=== PATIENT | male | born 1965 | race Caucasian/White ===

== ENCOUNTER 2020-11-09 08:14 | Inpatient (IN) | payer OTHER ==
[2020-11-09 08:42] VITALS: BMI 38.9
[2020-11-09] MEDS ORDERED: MAGNESIUM CITRATE 300 ML BOTTLE PO PRN (09:51)
[2020-11-09] MEDS ORDERED: MAGNESIUM HYDROX 2400MG/30ML ORAL SUSPENSION 30 ML CUP PO PRN (09:51)
[2020-11-09] MEDS ORDERED: chlordiazePOXIDE HCL 25 MG CAPSULE PO PRN (09:51)
[2020-11-09] MEDS ORDERED: ACETAMINOPHEN 325 MG TABLET (FP) PO PRN (09:51)
[2020-11-09] MEDS ORDERED: MENTHOL/PHENOL 1 EACH UD MM PRN (09:51)
[2020-11-09] MEDS ORDERED: IBUPROFEN 400 MG TABLET (FP) PO PRN (09:51)
[2020-11-09] MEDS ORDERED: ONDANSETRON *ODT* 4 MG TABLET SL PRN (09:51)
[2020-11-09] MEDS ORDERED: METHOCARBAMOL 500 MG TABLET PO PRN (09:51)
[2020-11-09] MEDS ORDERED: MAG HYDROX/AL HYDROX/SIMETH 30 ML UNIT-DOSE CUP PO PRN (09:51)
[2020-11-09] MEDS ORDERED: ALBUTEROL SO4 HFA INHALER IH PRN (09:56)
[2020-11-09] MEDS ORDERED: INSULIN (NOVOLOG) ASPART 100 UNITS/ML 10ML VIAL ONE ×3 (10:18→22:39)
[2020-11-09] MEDS: INSULIN (NOVOLOG) ASPART 100 UNITS/ML 10ML VIAL SQ SCH ×3 (10:50→22:35)
[2020-11-09] MEDS: chlordiazePOXIDE HCL 25 MG CAPSULE PO SCH ×2 (12:15→18:30)
[2020-11-09] MEDS: FUROSEMIDE 40 MG TABLET (FP) PO SCH (12:15)
[2020-11-09] MEDS: amLODIPine BESYLATE 5 MG TABLET (FP) PO SCH (12:16)
[2020-11-09] MEDS: OXYMETAZOLINE 0.05% NASAL SOLUTION 15 ML BOTTLE NS SCH ×2 (12:16→22:29)
[2020-11-09] MEDS: GABAPENTIN 300 MG CAPSULE PO SCH ×2 (12:16→22:30)
[2020-11-09] MEDS: PRENATAL VITAMINS W/ FOLIC ACID TABLET (FP) PO SCH (12:17)
[2020-11-09] MEDS: PIOGLITAZONE HCL 30 MG TABLET PO SCH (12:19)
[2020-11-09] MEDS: CARVEDILOL 25 MG TABLET (FP) PO SCH ×2 (12:29→22:30)
[2020-11-09] MEDS: EZETIMIBE 10 MG TABLET (FP) PO SCH (12:29)
[2020-11-09] MEDS: hydrOXYzine PAMOATE 25 MG CAPSULE (FP) PO SCH ×4 (12:29→22:35)
[2020-11-09 12:46] LABS: HEMATOCRIT 34.2 % (35.4-49); HEMOGLOBIN 11.7 GM/dL (11.7-16.9); MCH 31.8 pg (25.7-33.7); MCHC 34.3 g/dl (32.0-35.9); MEAN CELL VOLUME 92.7 fl (80-96); MEAN PLT VOLUME 7.8 fl (7.5-11.1); PLATELET COUNT 108 K/MM3 (134-434); RBC 3.69 M/mm3 (4.00-5.60); RDW 13.4 % (11.9-15.9); WHITE BLOOD COUNT 5.3 K/mm3 (4.0-10.0)
[2020-11-09 12:52] LABS: ALBUMIN 3.5 g/dl (3.4-5.0); CALCIUM 8.9 mg/dL (8.5-10.1)
[2020-11-09 12:53] LABS: BLOOD UREA NITROGEN 28.2 mg/dL (7-18)
[2020-11-09 12:56] LABS: CREATININE 1.6 mg/dL (0.55-1.3)
[2020-11-09 12:57] LABS: BILIRUBIN,TOTAL 0.7 mg/dL (0.2-1); TOT PROT 7.3 g/dl (6.4-8.2)
[2020-11-09] MEDS ORDERED: LORazepam 1 MG TABLET PO PRN (17:53)
[2020-11-09] MEDS ORDERED: ATORVASTATIN CA 40 MG TABLET (FP) PO SCH (22:00)
[2020-11-09] MEDS: LORazepam 2 MG TABLET PO SCH (22:29)
[2020-11-09] MEDS: THIAMINE HCL 100 MG TABLET (FP) PO SCH (22:30)
[2020-11-09] MEDS: MELATONIN 5 MG TABLETS PO SCH (22:32)
[2020-11-09] MEDS: INSULIN (LEVEMIR) 100 UNITS/ML UNITS SQ SCH (22:34)
[2020-11-10] MEDS: hydrOXYzine PAMOATE 25 MG CAPSULE (FP) PO SCH (05:17)
[2020-11-10] MEDS: LORazepam 2 MG TABLET PO SCH ×4 (05:17→22:04)
[2020-11-10] MEDS ORDERED: INSULIN (NOVOLOG) ASPART 100 UNITS/ML 10ML VIAL ONE ×4 (07:58→22:18)
[2020-11-10] MEDS: INSULIN (NOVOLOG) ASPART 100 UNITS/ML 10ML VIAL SQ SCH ×4 (08:00→22:06)
[2020-11-10] MEDS: CARVEDILOL 25 MG TABLET (FP) PO SCH ×2 (11:02→22:04)
[2020-11-10] MEDS: OXYMETAZOLINE 0.05% NASAL SOLUTION 15 ML BOTTLE NS SCH ×2 (11:02→22:05)
[2020-11-10] MEDS: PIOGLITAZONE HCL 30 MG TABLET PO SCH (11:02)
[2020-11-10] MEDS: PRENATAL VITAMINS W/ FOLIC ACID TABLET (FP) PO SCH (11:03)
[2020-11-10] MEDS: GABAPENTIN 300 MG CAPSULE PO SCH ×2 (11:03→22:03)
[2020-11-10] MEDS: FUROSEMIDE 40 MG TABLET (FP) PO SCH (11:03)
[2020-11-10] MEDS: EZETIMIBE 10 MG TABLET (FP) PO SCH (11:03)
[2020-11-10] MEDS: amLODIPine BESYLATE 5 MG TABLET (FP) PO SCH (11:03)
[2020-11-10] MEDS: BISMUTH SUBSALICYLATE 524 MG/30 ML PO PRN (12:04)
[2020-11-10] MEDS: ATORVASTATIN CA 40 MG TABLET (FP) PO SCH (22:03)
[2020-11-10] MEDS: THIAMINE HCL 100 MG TABLET (FP) PO SCH (22:04)
[2020-11-10] MEDS: MELATONIN 5 MG TABLETS PO SCH (22:06)
[2020-11-10] MEDS: INSULIN (LEVEMIR) 100 UNITS/ML UNITS SQ SCH (22:06)
[2020-11-11] MEDS ORDERED: LORazepam 1 MG TABLET PO SCH (05:00)
[2020-11-11] MEDS ORDERED: chlordiazePOXIDE HCL 25 MG CAPSULE PO SCH (05:00)
[2020-11-11] MEDS ORDERED: INSULIN (NOVOLOG) ASPART 100 UNITS/ML 10ML VIAL ONE ×4 (07:26→22:01)
[2020-11-11] MEDS: INSULIN (NOVOLOG) ASPART 100 UNITS/ML 10ML VIAL SQ SCH ×4 (07:31→22:04)
[2020-11-11] MEDS ORDERED: chlordiazePOXIDE HCL 10 MG CAPSULE PO PRN (10:04)
[2020-11-11] MEDS: amLODIPine BESYLATE 5 MG TABLET (FP) PO SCH (10:18)
[2020-11-11] MEDS: CARVEDILOL 25 MG TABLET (FP) PO SCH ×2 (10:19→22:02)
[2020-11-11] MEDS: PRENATAL VITAMINS W/ FOLIC ACID TABLET (FP) PO SCH (10:19)
[2020-11-11] MEDS: GABAPENTIN 300 MG CAPSULE PO SCH ×2 (10:19→22:02)
[2020-11-11] MEDS: FUROSEMIDE 40 MG TABLET (FP) PO SCH (10:19)
[2020-11-11] MEDS: EZETIMIBE 10 MG TABLET (FP) PO SCH (10:20)
[2020-11-11] MEDS: OXYMETAZOLINE 0.05% NASAL SOLUTION 15 ML BOTTLE NS SCH ×2 (10:21→22:13)
[2020-11-11] MEDS: PIOGLITAZONE HCL 30 MG TABLET PO SCH (10:21)
[2020-11-11] MEDS: chlordiazePOXIDE HCL 10 MG CAPSULE PO SCH ×3 (11:29→22:06)
[2020-11-11] MEDS: BISMUTH SUBSALICYLATE 524 MG/30 ML PO PRN (15:52)
[2020-11-11] MEDS: LORATADINE 10 MG TABLET PO SCH (17:30)
[2020-11-11] MEDS: ATORVASTATIN CA 40 MG TABLET (FP) PO SCH (22:02)
[2020-11-11] MEDS: MELATONIN 5 MG TABLETS PO SCH (22:03)
[2020-11-11] MEDS: THIAMINE HCL 100 MG TABLET (FP) PO SCH (22:03)
[2020-11-11] MEDS: INSULIN (LEVEMIR) 100 UNITS/ML UNITS SQ SCH (22:04)
[2020-11-12] MEDS ORDERED: chlordiazePOXIDE HCL 10 MG CAPSULE PO PRN
[2020-11-12] MEDS ORDERED: LORazepam 0.5 MG TABLET PO PRN
[2020-11-12] MEDS ORDERED: chlordiazePOXIDE HCL 10 MG CAPSULE PO SCH (05:00)
[2020-11-12] MEDS ORDERED: LORazepam 0.5 MG TABLET PO SCH (05:00)
[2020-11-12] MEDS: INSULIN (NOVOLOG) ASPART 100 UNITS/ML 10ML VIAL SQ SCH ×4 (07:16→21:59)
[2020-11-12 10:10] LABS: SARS-CoV-2 NAA Not Detected (Not Detected)
[2020-11-12] MEDS: OXYMETAZOLINE 0.05% NASAL SOLUTION 15 ML BOTTLE NS SCH ×2 (10:10→21:57)
[2020-11-12] MEDS: chlordiazePOXIDE HCL 10 MG CAPSULE PO SCH ×2 (10:11→21:59)
[2020-11-12] MEDS: LORATADINE 10 MG TABLET PO SCH (10:11)
[2020-11-12] MEDS: FUROSEMIDE 40 MG TABLET (FP) PO SCH (10:12)
[2020-11-12] MEDS: GABAPENTIN 300 MG CAPSULE PO SCH ×2 (10:13→21:58)
[2020-11-12] MEDS: EZETIMIBE 10 MG TABLET (FP) PO SCH (10:13)
[2020-11-12] MEDS: CARVEDILOL 25 MG TABLET (FP) PO SCH ×2 (10:13→21:58)
[2020-11-12] MEDS: amLODIPine BESYLATE 5 MG TABLET (FP) PO SCH (10:13)
[2020-11-12] MEDS: PRENATAL VITAMINS W/ FOLIC ACID TABLET (FP) PO SCH (10:13)
[2020-11-12] MEDS: PIOGLITAZONE HCL 30 MG TABLET PO SCH (10:14)
[2020-11-12 10:52] LABS: BLOOD UREA NITROGEN 36.2 mg/dL (7-18)
[2020-11-12] MEDS ORDERED: INSULIN (NOVOLOG) ASPART 100 UNITS/ML 10ML VIAL ONE ×2 (11:46→17:03)
[2020-11-12] MEDS: ATORVASTATIN CA 40 MG TABLET (FP) PO SCH (21:58)
[2020-11-12] MEDS: THIAMINE HCL 100 MG TABLET (FP) PO SCH (21:58)
[2020-11-12] MEDS: MELATONIN 5 MG TABLETS PO SCH (21:59)
[2020-11-12] MEDS: INSULIN (LEVEMIR) 100 UNITS/ML UNITS SQ SCH (21:59)
[2020-11-13] MEDS ORDERED: chlordiazePOXIDE HCL 10 MG CAPSULE PO SCH (05:00)
[2020-11-13] MEDS ORDERED: LORazepam 0.5 MG TABLET PO ONE (05:00)
[2020-11-13] MEDS ORDERED: chlordiazePOXIDE HCL 10 MG CAPSULE PO ONE (06:00)
[2020-11-13] MEDS: INSULIN (NOVOLOG) ASPART 100 UNITS/ML 10ML VIAL SQ SCH ×4 (07:06→21:58)
[2020-11-13] MEDS: PIOGLITAZONE HCL 30 MG TABLET PO SCH (10:10)
[2020-11-13] MEDS: CARVEDILOL 25 MG TABLET (FP) PO SCH ×2 (10:10→21:57)
[2020-11-13] MEDS: OXYMETAZOLINE 0.05% NASAL SOLUTION 15 ML BOTTLE NS SCH ×2 (10:10→21:57)
[2020-11-13] MEDS: amLODIPine BESYLATE 5 MG TABLET (FP) PO SCH (10:10)
[2020-11-13] MEDS: FUROSEMIDE 40 MG TABLET (FP) PO SCH (10:10)
[2020-11-13] MEDS: LORATADINE 10 MG TABLET PO SCH (10:11)
[2020-11-13] MEDS: GABAPENTIN 300 MG CAPSULE PO SCH ×2 (10:11→21:57)
[2020-11-13] MEDS: EZETIMIBE 10 MG TABLET (FP) PO SCH (10:11)
[2020-11-13] MEDS: PRENATAL VITAMINS W/ FOLIC ACID TABLET (FP) PO SCH (10:12)
[2020-11-13] MEDS: ATORVASTATIN CA 40 MG TABLET (FP) PO SCH (21:57)
[2020-11-13] MEDS: MELATONIN 5 MG TABLETS PO SCH (21:57)
[2020-11-13] MEDS: THIAMINE HCL 100 MG TABLET (FP) PO SCH (21:57)
[2020-11-13] MEDS: INSULIN (LEVEMIR) 100 UNITS/ML UNITS SQ SCH (21:58)
[2020-11-14] MEDS ORDERED: chlordiazePOXIDE HCL 10 MG CAPSULE PO ONE (05:00)
[2020-11-14] MEDS ORDERED: INSULIN (NOVOLOG) ASPART 100 UNITS/ML 10ML VIAL ONE (06:36)
[2020-11-14] MEDS: INSULIN (NOVOLOG) ASPART 100 UNITS/ML 10ML VIAL SQ SCH ×3 (06:37→17:21)
[2020-11-14] MEDS ORDERED: PT OWN MED DRAWER 7, Y5N ONE (08:51)
[2020-11-14] MEDS: amLODIPine BESYLATE 5 MG TABLET (FP) PO SCH (09:37)
[2020-11-14] MEDS: PRENATAL VITAMINS W/ FOLIC ACID TABLET (FP) PO SCH (09:37)
[2020-11-14] MEDS: GABAPENTIN 300 MG CAPSULE PO SCH ×2 (09:38→21:25)
[2020-11-14] MEDS: FUROSEMIDE 40 MG TABLET (FP) PO SCH (09:38)
[2020-11-14] MEDS: LORATADINE 10 MG TABLET PO SCH (09:38)
[2020-11-14] MEDS: OXYMETAZOLINE 0.05% NASAL SOLUTION 15 ML BOTTLE NS SCH ×2 (09:38→21:25)
[2020-11-14] MEDS: PIOGLITAZONE HCL 30 MG TABLET PO SCH (11:34)
[2020-11-14] MEDS: CARVEDILOL 25 MG TABLET (FP) PO SCH ×2 (11:35→21:25)
[2020-11-14] MEDS: EZETIMIBE 10 MG TABLET (FP) PO SCH (11:35)
[2020-11-14] MEDS ORDERED: INSULIN SLIDING SCALE (NOVOLOG) 1 VIAL SQ SCH (16:30)
[2020-11-14] MEDS ORDERED: PATIENT'S OWN MEDICATION (NON-FORMULARY) (Insulin Lispro [Humalog Kwikpen U-100] 100 UNIT/ SQ SCH (16:30)
[2020-11-14] MEDS: INSULIN SLIDING SCALE (NOVOLOG) 1 VIAL SQ SCH ×2 (17:21→21:29)
[2020-11-14] MEDS: THIAMINE HCL 100 MG TABLET (FP) PO SCH (21:25)
[2020-11-14] MEDS: ATORVASTATIN CA 40 MG TABLET (FP) PO SCH (21:25)
[2020-11-14] MEDS: MELATONIN 5 MG TABLETS PO SCH (21:26)
[2020-11-14] MEDS: INSULIN (LEVEMIR) 100 UNITS/ML UNITS SQ SCH (21:29)
[2020-11-14] MEDS ORDERED: PATIENT'S OWN MEDICATION (NON-FORMULARY) (Insulin Degludec [Tresiba Flextouch U-100] 60 UN SQ SCH (22:00)
[2020-11-14] MEDS ORDERED: PATIENT'S OWN MEDICATION (NON-FORMULARY) (Insulin Degludec [Tresiba Flextouch U-100] 100 U SQ SCH (22:00)
[2020-11-15] MEDS: INSULIN (NOVOLOG) ASPART 100 UNITS/ML 10ML VIAL SQ SCH ×3 (07:43→16:30)
[2020-11-15] MEDS: INSULIN SLIDING SCALE (NOVOLOG) 1 VIAL SQ SCH ×4 (07:44→22:04)
[2020-11-15] MEDS ORDERED: PT OWN MED DRAWER 7, Y5N ONE ×2 (08:18→20:54)
[2020-11-15] MEDS: PRENATAL VITAMINS W/ FOLIC ACID TABLET (FP) PO SCH (09:45)
[2020-11-15] MEDS: CARVEDILOL 25 MG TABLET (FP) PO SCH ×2 (09:46→22:03)
[2020-11-15] MEDS: GABAPENTIN 300 MG CAPSULE PO SCH ×2 (09:46→21:08)
[2020-11-15] MEDS: amLODIPine BESYLATE 5 MG TABLET (FP) PO SCH (09:46)
[2020-11-15] MEDS: FUROSEMIDE 40 MG TABLET (FP) PO SCH (09:46)
[2020-11-15] MEDS: LORATADINE 10 MG TABLET PO SCH (09:46)
[2020-11-15] MEDS: OXYMETAZOLINE 0.05% NASAL SOLUTION 15 ML BOTTLE NS SCH ×2 (09:48→21:10)
[2020-11-15] MEDS: PIOGLITAZONE HCL 30 MG TABLET PO SCH (09:49)
[2020-11-15] MEDS: EZETIMIBE 10 MG TABLET (FP) PO SCH (09:49)
[2020-11-15] MEDS: ATORVASTATIN CA 40 MG TABLET (FP) PO SCH (21:08)
[2020-11-15] MEDS: THIAMINE HCL 100 MG TABLET (FP) PO SCH (21:08)
[2020-11-15] MEDS: MELATONIN 5 MG TABLETS PO SCH (22:02)
[2020-11-15] MEDS: INSULIN (LEVEMIR) 100 UNITS/ML UNITS SQ SCH (22:02)
[2020-11-16] MEDS: INSULIN SLIDING SCALE (NOVOLOG) 1 VIAL SQ SCH ×4 (06:16→21:41)
[2020-11-16] MEDS: INSULIN (NOVOLOG) ASPART 100 UNITS/ML 10ML VIAL SQ SCH ×3 (06:17→16:59)
[2020-11-16] MEDS ORDERED: PT OWN MED DRAWER 7, Y5N ONE (08:33)
[2020-11-16] MEDS: PRENATAL VITAMINS W/ FOLIC ACID TABLET (FP) PO SCH (09:53)
[2020-11-16] MEDS: PIOGLITAZONE HCL 30 MG TABLET PO SCH (09:54)
[2020-11-16] MEDS: OXYMETAZOLINE 0.05% NASAL SOLUTION 15 ML BOTTLE NS SCH ×2 (09:54→21:38)
[2020-11-16] MEDS: GABAPENTIN 300 MG CAPSULE PO SCH ×2 (09:55→21:38)
[2020-11-16] MEDS: LORATADINE 10 MG TABLET PO SCH (09:55)
[2020-11-16] MEDS: EZETIMIBE 10 MG TABLET (FP) PO SCH (09:57)
[2020-11-16] MEDS: FUROSEMIDE 40 MG TABLET (FP) PO SCH (12:08)
[2020-11-16] MEDS: CARVEDILOL 25 MG TABLET (FP) PO SCH ×2 (12:08→21:38)
[2020-11-16] MEDS: amLODIPine BESYLATE 5 MG TABLET (FP) PO SCH (12:08)
[2020-11-16] MEDS: THIAMINE HCL 100 MG TABLET (FP) PO SCH (21:38)
[2020-11-16] MEDS: ATORVASTATIN CA 40 MG TABLET (FP) PO SCH (21:38)
[2020-11-16] MEDS: MELATONIN 5 MG TABLETS PO SCH (21:39)
[2020-11-16] MEDS: INSULIN (LEVEMIR) 100 UNITS/ML UNITS SQ SCH (21:40)
[2020-11-17] MEDS: INSULIN SLIDING SCALE (NOVOLOG) 1 VIAL SQ SCH ×4 (06:35→21:19)
[2020-11-17] MEDS: INSULIN (NOVOLOG) ASPART 100 UNITS/ML 10ML VIAL SQ SCH ×3 (06:35→16:59)
[2020-11-17] MEDS ORDERED: PT OWN MED DRAWER 7, Y5N ONE (07:34)
[2020-11-17] MEDS: EZETIMIBE 10 MG TABLET (FP) PO SCH (09:45)
[2020-11-17] MEDS: PIOGLITAZONE HCL 30 MG TABLET PO SCH (09:45)
[2020-11-17] MEDS: CARVEDILOL 25 MG TABLET (FP) PO SCH ×2 (09:45→21:17)
[2020-11-17] MEDS: PRENATAL VITAMINS W/ FOLIC ACID TABLET (FP) PO SCH (09:46)
[2020-11-17] MEDS: FUROSEMIDE 40 MG TABLET (FP) PO SCH (09:46)
[2020-11-17] MEDS: amLODIPine BESYLATE 5 MG TABLET (FP) PO SCH (09:46)
[2020-11-17] MEDS: LORATADINE 10 MG TABLET PO SCH (09:46)
[2020-11-17] MEDS: GABAPENTIN 300 MG CAPSULE PO SCH ×2 (09:46→21:17)
[2020-11-17] MEDS: OXYMETAZOLINE 0.05% NASAL SOLUTION 15 ML BOTTLE NS SCH ×2 (09:47→21:18)
[2020-11-17] MEDS: ATORVASTATIN CA 40 MG TABLET (FP) PO SCH (21:17)
[2020-11-17] MEDS: THIAMINE HCL 100 MG TABLET (FP) PO SCH (21:17)
[2020-11-17] MEDS: MELATONIN 5 MG TABLETS PO SCH (21:18)
[2020-11-17] MEDS: INSULIN (LEVEMIR) 100 UNITS/ML UNITS SQ SCH (21:21)
[2020-11-18] MEDS: INSULIN (NOVOLOG) ASPART 100 UNITS/ML 10ML VIAL SQ SCH ×3 (08:12→16:36)
[2020-11-18] MEDS: INSULIN SLIDING SCALE (NOVOLOG) 1 VIAL SQ SCH ×4 (08:13→21:12)
[2020-11-18] MEDS: amLODIPine BESYLATE 5 MG TABLET (FP) PO SCH (10:05)
[2020-11-18] MEDS: GABAPENTIN 300 MG CAPSULE PO SCH ×2 (10:05→21:11)
[2020-11-18] MEDS: LORATADINE 10 MG TABLET PO SCH (10:05)
[2020-11-18] MEDS: CARVEDILOL 25 MG TABLET (FP) PO SCH ×2 (10:05→21:11)
[2020-11-18] MEDS: FUROSEMIDE 40 MG TABLET (FP) PO SCH (10:05)
[2020-11-18] MEDS: PRENATAL VITAMINS W/ FOLIC ACID TABLET (FP) PO SCH (10:05)
[2020-11-18] MEDS: PIOGLITAZONE HCL 30 MG TABLET PO SCH (10:06)
[2020-11-18] MEDS: EZETIMIBE 10 MG TABLET (FP) PO SCH (10:06)
[2020-11-18] MEDS: OXYMETAZOLINE 0.05% NASAL SOLUTION 15 ML BOTTLE NS SCH ×2 (10:06→21:11)
[2020-11-18] MEDS ORDERED: WITCH HAZEL 50% (TUCKS) 40 PAD/JAR PAD TP PRN (10:40)
[2020-11-18] MEDS ORDERED: PT OWN MED DRAWER 7, Y5N ONE (20:08)
[2020-11-18] MEDS: ATORVASTATIN CA 40 MG TABLET (FP) PO SCH (21:11)
[2020-11-18] MEDS: THIAMINE HCL 100 MG TABLET (FP) PO SCH (21:11)
[2020-11-18] MEDS: INSULIN (LEVEMIR) 100 UNITS/ML UNITS SQ SCH (21:12)
[2020-11-18] MEDS: MELATONIN 5 MG TABLETS PO SCH (21:13)
[2020-11-19] MEDS ORDERED: INSULIN (NOVOLOG) ASPART 100 UNITS/ML 10ML VIAL ONE (07:09)
[2020-11-19] MEDS: INSULIN (NOVOLOG) ASPART 100 UNITS/ML 10ML VIAL SQ SCH ×3 (07:22→16:52)
[2020-11-19] MEDS: INSULIN SLIDING SCALE (NOVOLOG) 1 VIAL SQ SCH ×4 (07:23→21:07)
[2020-11-19] MEDS: GABAPENTIN 300 MG CAPSULE PO SCH ×2 (09:48→21:06)
[2020-11-19] MEDS: amLODIPine BESYLATE 5 MG TABLET (FP) PO SCH (09:48)
[2020-11-19] MEDS: CARVEDILOL 25 MG TABLET (FP) PO SCH ×2 (09:48→21:06)
[2020-11-19] MEDS: LORATADINE 10 MG TABLET PO SCH (09:48)
[2020-11-19] MEDS: PRENATAL VITAMINS W/ FOLIC ACID TABLET (FP) PO SCH (09:48)
[2020-11-19] MEDS: FUROSEMIDE 40 MG TABLET (FP) PO SCH (09:48)
[2020-11-19] MEDS: PIOGLITAZONE HCL 30 MG TABLET PO SCH (09:50)
[2020-11-19] MEDS: EZETIMIBE 10 MG TABLET (FP) PO SCH (09:50)
[2020-11-19] MEDS: OXYMETAZOLINE 0.05% NASAL SOLUTION 15 ML BOTTLE NS SCH ×2 (09:50→21:06)
[2020-11-19] MEDS: ATORVASTATIN CA 40 MG TABLET (FP) PO SCH (21:06)
[2020-11-19] MEDS: MELATONIN 5 MG TABLETS PO SCH (21:06)
[2020-11-19] MEDS: THIAMINE HCL 100 MG TABLET (FP) PO SCH (21:06)
[2020-11-19] MEDS: INSULIN (LEVEMIR) 100 UNITS/ML UNITS SQ SCH (21:08)
[2020-11-20] MEDS: PIOGLITAZONE HCL 30 MG TABLET PO SCH (07:31)
[2020-11-20] MEDS: INSULIN (NOVOLOG) ASPART 100 UNITS/ML 10ML VIAL SQ SCH ×3 (07:31→16:54)
[2020-11-20] MEDS: INSULIN SLIDING SCALE (NOVOLOG) 1 VIAL SQ SCH ×4 (07:32→21:22)
[2020-11-20] MEDS: CARVEDILOL 25 MG TABLET (FP) PO SCH ×2 (09:35→21:19)
[2020-11-20] MEDS: OXYMETAZOLINE 0.05% NASAL SOLUTION 15 ML BOTTLE NS SCH ×2 (09:35→21:19)
[2020-11-20] MEDS: EZETIMIBE 10 MG TABLET (FP) PO SCH (09:36)
[2020-11-20] MEDS: PRENATAL VITAMINS W/ FOLIC ACID TABLET (FP) PO SCH (09:36)
[2020-11-20] MEDS: FUROSEMIDE 40 MG TABLET (FP) PO SCH (09:36)
[2020-11-20] MEDS: amLODIPine BESYLATE 5 MG TABLET (FP) PO SCH (09:36)
[2020-11-20] MEDS: LORATADINE 10 MG TABLET PO SCH (09:36)
[2020-11-20] MEDS: GABAPENTIN 300 MG CAPSULE PO SCH ×2 (09:36→21:19)
[2020-11-20] MEDS: ATORVASTATIN CA 40 MG TABLET (FP) PO SCH (21:19)
[2020-11-20] MEDS: THIAMINE HCL 100 MG TABLET (FP) PO SCH (21:19)
[2020-11-20] MEDS: INSULIN (LEVEMIR) 100 UNITS/ML UNITS SQ SCH (21:20)
[2020-11-20] MEDS: MELATONIN 5 MG TABLETS PO SCH (21:21)
[2020-11-21] MEDS: PIOGLITAZONE HCL 30 MG TABLET PO SCH (06:32)
[2020-11-21] MEDS: INSULIN SLIDING SCALE (NOVOLOG) 1 VIAL SQ SCH ×4 (07:21→21:24)
[2020-11-21] MEDS: INSULIN (NOVOLOG) ASPART 100 UNITS/ML 10ML VIAL SQ SCH ×3 (07:21→16:52)
[2020-11-21] MEDS: PRENATAL VITAMINS W/ FOLIC ACID TABLET (FP) PO SCH (09:47)
[2020-11-21] MEDS: LORATADINE 10 MG TABLET PO SCH (09:48)
[2020-11-21] MEDS: amLODIPine BESYLATE 5 MG TABLET (FP) PO SCH (09:48)
[2020-11-21] MEDS: GABAPENTIN 300 MG CAPSULE PO SCH ×2 (09:48→21:22)
[2020-11-21] MEDS: CARVEDILOL 25 MG TABLET (FP) PO SCH ×2 (09:48→21:22)
[2020-11-21] MEDS: FUROSEMIDE 40 MG TABLET (FP) PO SCH (09:48)
[2020-11-21] MEDS: OXYMETAZOLINE 0.05% NASAL SOLUTION 15 ML BOTTLE NS SCH (09:48)
[2020-11-21] MEDS: EZETIMIBE 10 MG TABLET (FP) PO SCH (09:49)
[2020-11-21] MEDS: OXYMETAZOLINE 0.05% NASAL SOLUTION 15 ML BOTTLE NS PRN (21:21)
[2020-11-21] MEDS: MELATONIN 5 MG TABLETS PO SCH (21:22)
[2020-11-21] MEDS: THIAMINE HCL 100 MG TABLET (FP) PO SCH (21:22)
[2020-11-21] MEDS: ATORVASTATIN CA 40 MG TABLET (FP) PO SCH (21:22)
[2020-11-21] MEDS: INSULIN (LEVEMIR) 100 UNITS/ML UNITS SQ SCH (21:24)
[2020-11-22 06:10] LABS: SARS-CoV-2 NAA Not Detected (Not Detected)
[2020-11-22] MEDS: PIOGLITAZONE HCL 30 MG TABLET PO SCH (06:18)
[2020-11-22] MEDS ORDERED: INSULIN (NOVOLOG) ASPART 100 UNITS/ML 10ML VIAL ONE ×2 (08:07→08:08)
[2020-11-22] MEDS: INSULIN (NOVOLOG) ASPART 100 UNITS/ML 10ML VIAL SQ SCH ×3 (08:32→17:39)
[2020-11-22] MEDS: INSULIN SLIDING SCALE (NOVOLOG) 1 VIAL SQ SCH ×4 (08:33→21:44)
[2020-11-22] MEDS: CARVEDILOL 25 MG TABLET (FP) PO SCH ×2 (09:40→21:43)
[2020-11-22] MEDS: PRENATAL VITAMINS W/ FOLIC ACID TABLET (FP) PO SCH (09:40)
[2020-11-22] MEDS: GABAPENTIN 300 MG CAPSULE PO SCH ×2 (09:41→21:43)
[2020-11-22] MEDS: EZETIMIBE 10 MG TABLET (FP) PO SCH (09:41)
[2020-11-22] MEDS: FUROSEMIDE 40 MG TABLET (FP) PO SCH (09:41)
[2020-11-22] MEDS: amLODIPine BESYLATE 5 MG TABLET (FP) PO SCH (09:41)
[2020-11-22] MEDS: LORATADINE 10 MG TABLET PO SCH (09:41)
[2020-11-22] MEDS: OXYMETAZOLINE 0.05% NASAL SOLUTION 15 ML BOTTLE NS PRN ×2 (09:44→22:26)
[2020-11-22] MEDS: INSULIN (LEVEMIR) 100 UNITS/ML UNITS SQ SCH (21:43)
[2020-11-22] MEDS: THIAMINE HCL 100 MG TABLET (FP) PO SCH (21:43)
[2020-11-22] MEDS: ATORVASTATIN CA 40 MG TABLET (FP) PO SCH (21:43)
[2020-11-22] MEDS: MELATONIN 5 MG TABLETS PO SCH (21:46)
[2020-11-22] MEDS ORDERED: PT OWN MED DRAWER 7, Y5N ONE (22:25)
[2020-11-23] MEDS ORDERED: PT OWN MED DRAWER 7, Y5N ONE ×2 (04:06→08:53)
[2020-11-23] MEDS: PIOGLITAZONE HCL 30 MG TABLET PO SCH (06:29)
[2020-11-23] MEDS: INSULIN (NOVOLOG) ASPART 100 UNITS/ML 10ML VIAL SQ SCH ×3 (07:51→17:46)
[2020-11-23] MEDS: INSULIN SLIDING SCALE (NOVOLOG) 1 VIAL SQ SCH ×4 (07:51→21:18)
[2020-11-23] MEDS ORDERED: INSULIN (NOVOLOG) ASPART 100 UNITS/ML 10ML VIAL ONE ×2 (07:53→13:22)
[2020-11-23] MEDS: GABAPENTIN 300 MG CAPSULE PO SCH ×2 (09:41→21:11)
[2020-11-23] MEDS: LORATADINE 10 MG TABLET PO SCH (09:41)
[2020-11-23] MEDS: PRENATAL VITAMINS W/ FOLIC ACID TABLET (FP) PO SCH (09:41)
[2020-11-23] MEDS: amLODIPine BESYLATE 5 MG TABLET (FP) PO SCH (09:41)
[2020-11-23] MEDS: CARVEDILOL 25 MG TABLET (FP) PO SCH ×2 (09:41→21:11)
[2020-11-23] MEDS: FUROSEMIDE 40 MG TABLET (FP) PO SCH (09:41)
[2020-11-23] MEDS: EZETIMIBE 10 MG TABLET (FP) PO SCH (09:43)
[2020-11-23] MEDS: OXYMETAZOLINE 0.05% NASAL SOLUTION 15 ML BOTTLE NS PRN ×2 (09:45→21:18)
[2020-11-23] MEDS: ATORVASTATIN CA 40 MG TABLET (FP) PO SCH (21:11)
[2020-11-23] MEDS: MELATONIN 5 MG TABLETS PO SCH (21:11)
[2020-11-23] MEDS: THIAMINE HCL 100 MG TABLET (FP) PO SCH (21:12)
[2020-11-23] MEDS: INSULIN (LEVEMIR) 100 UNITS/ML UNITS SQ SCH (21:17)
[2020-11-23] MEDS: ACETAMINOPHEN 325 MG TABLET (FP) PO PRN (23:08)
[2020-11-24] MEDS: PIOGLITAZONE HCL 30 MG TABLET PO SCH (06:27)
[2020-11-24] MEDS: INSULIN (NOVOLOG) ASPART 100 UNITS/ML 10ML VIAL SQ SCH ×3 (07:13→17:01)
[2020-11-24] MEDS: INSULIN SLIDING SCALE (NOVOLOG) 1 VIAL SQ SCH ×4 (07:14→21:16)
[2020-11-24] MEDS: GABAPENTIN 300 MG CAPSULE PO SCH ×2 (09:40→21:12)
[2020-11-24] MEDS: amLODIPine BESYLATE 5 MG TABLET (FP) PO SCH (09:40)
[2020-11-24] MEDS: CARVEDILOL 25 MG TABLET (FP) PO SCH ×2 (09:40→21:12)
[2020-11-24] MEDS: PRENATAL VITAMINS W/ FOLIC ACID TABLET (FP) PO SCH (09:41)
[2020-11-24] MEDS: LORATADINE 10 MG TABLET PO SCH (09:41)
[2020-11-24] MEDS: FUROSEMIDE 40 MG TABLET (FP) PO SCH (09:41)
[2020-11-24] MEDS: EZETIMIBE 10 MG TABLET (FP) PO SCH (09:41)
[2020-11-24] MEDS: OXYMETAZOLINE 0.05% NASAL SOLUTION 15 ML BOTTLE NS PRN ×2 (09:41→21:17)
[2020-11-24] MEDS ORDERED: INSULIN (NOVOLOG) ASPART 100 UNITS/ML 10ML VIAL ONE (11:39)
[2020-11-24] MEDS ORDERED: BENZOCAINE/MENTH/CETYLPYRD CL 1 EACH LOZENGE MM PRN (15:29)
[2020-11-24] MEDS: MELATONIN 5 MG TABLETS PO SCH (21:12)
[2020-11-24] MEDS: THIAMINE HCL 100 MG TABLET (FP) PO SCH (21:12)
[2020-11-24] MEDS: ATORVASTATIN CA 40 MG TABLET (FP) PO SCH (21:12)
[2020-11-24] MEDS: INSULIN (LEVEMIR) 100 UNITS/ML UNITS SQ SCH (21:15)
[2020-11-24] MEDS: BENZOCAINE/MENTH/CETYLPYRD CL 1 EACH LOZENGE MM PRN (21:18)
[2020-11-25] MEDS: BENZOCAINE/MENTH/CETYLPYRD CL 1 EACH LOZENGE MM PRN ×3 (03:32→18:00)
[2020-11-25] MEDS ORDERED: PT OWN MED DRAWER 7, Y5N ONE ×2 (04:05→09:25)
[2020-11-25] MEDS: PIOGLITAZONE HCL 30 MG TABLET PO SCH (06:30)
[2020-11-25] MEDS: INSULIN SLIDING SCALE (NOVOLOG) 1 VIAL SQ SCH ×4 (08:43→21:16)
[2020-11-25] MEDS: INSULIN (NOVOLOG) ASPART 100 UNITS/ML 10ML VIAL SQ SCH ×3 (08:43→17:01)
[2020-11-25] MEDS ORDERED: INSULIN (NOVOLOG) ASPART 100 UNITS/ML 10ML VIAL ONE (08:46)
[2020-11-25] MEDS: PRENATAL VITAMINS W/ FOLIC ACID TABLET (FP) PO SCH (09:42)
[2020-11-25] MEDS: OXYMETAZOLINE 0.05% NASAL SOLUTION 15 ML BOTTLE NS PRN (09:42)
[2020-11-25] MEDS: LORATADINE 10 MG TABLET PO SCH (09:42)
[2020-11-25] MEDS: amLODIPine BESYLATE 5 MG TABLET (FP) PO SCH (09:42)
[2020-11-25] MEDS: FUROSEMIDE 40 MG TABLET (FP) PO SCH (09:42)
[2020-11-25] MEDS: CARVEDILOL 25 MG TABLET (FP) PO SCH ×2 (09:43→21:15)
[2020-11-25] MEDS: GABAPENTIN 300 MG CAPSULE PO SCH ×2 (09:43→21:15)
[2020-11-25] MEDS: EZETIMIBE 10 MG TABLET (FP) PO SCH (09:43)
[2020-11-25] MEDS: guaiFENesin 200 MG/10 ML 10 ML UNIT-DOSE CUPS PO PRN (18:17)
[2020-11-25] MEDS: ATORVASTATIN CA 40 MG TABLET (FP) PO SCH (21:15)
[2020-11-25] MEDS: MELATONIN 5 MG TABLETS PO SCH (21:15)
[2020-11-25] MEDS: THIAMINE HCL 100 MG TABLET (FP) PO SCH (21:15)
[2020-11-25] MEDS: INSULIN (LEVEMIR) 100 UNITS/ML UNITS SQ SCH (21:17)
[2020-11-26] MEDS: guaiFENesin 200 MG/10 ML 10 ML UNIT-DOSE CUPS PO PRN ×4 (00:23→22:23)
[2020-11-26] MEDS: BENZOCAINE/MENTH/CETYLPYRD CL 1 EACH LOZENGE MM PRN ×3 (00:23→13:56)
[2020-11-26] MEDS: PIOGLITAZONE HCL 30 MG TABLET PO SCH (06:46)
[2020-11-26] MEDS ORDERED: INSULIN (NOVOLOG) ASPART 100 UNITS/ML 10ML VIAL ONE ×2 (07:06→12:04)
[2020-11-26] MEDS: INSULIN SLIDING SCALE (NOVOLOG) 1 VIAL SQ SCH ×4 (07:16→21:31)
[2020-11-26] MEDS: INSULIN (NOVOLOG) ASPART 100 UNITS/ML 10ML VIAL SQ SCH ×3 (07:16→17:01)
[2020-11-26] MEDS: CARVEDILOL 25 MG TABLET (FP) PO SCH ×2 (09:07→21:26)
[2020-11-26] MEDS: FUROSEMIDE 40 MG TABLET (FP) PO SCH (09:07)
[2020-11-26] MEDS: LORATADINE 10 MG TABLET PO SCH (09:07)
[2020-11-26] MEDS: GABAPENTIN 300 MG CAPSULE PO SCH ×2 (09:07→21:24)
[2020-11-26] MEDS: amLODIPine BESYLATE 5 MG TABLET (FP) PO SCH (09:07)
[2020-11-26] MEDS: EZETIMIBE 10 MG TABLET (FP) PO SCH (09:08)
[2020-11-26] MEDS: PRENATAL VITAMINS W/ FOLIC ACID TABLET (FP) PO SCH (09:08)
[2020-11-26] MEDS: ACETAMINOPHEN 325 MG TABLET (FP) PO PRN (09:08)
[2020-11-26] MEDS: OXYMETAZOLINE 0.05% NASAL SOLUTION 15 ML BOTTLE NS PRN (09:11)
[2020-11-26 15:03] LABS: ALBUMIN 3.1 g/dl (3.4-5.0); BLOOD UREA NITROGEN 40.7 mg/dL (7-18); CALCIUM 9.1 mg/dL (8.5-10.1)
[2020-11-26 15:06] LABS: CREATININE 1.9 mg/dL (0.55-1.3)
[2020-11-26 15:07] LABS: BILIRUBIN,TOTAL 0.5 mg/dL (0.2-1)
[2020-11-26 15:08] LABS: TOT PROT 6.9 g/dl (6.4-8.2)
[2020-11-26 15:10] LABS: HEMATOCRIT 30.6 % (35.4-49); HEMOGLOBIN 10.4 GM/dL (11.7-16.9); MCH 31.4 pg (25.7-33.7); MEAN CELL VOLUME 92.3 fl (80-96); MEAN PLT VOLUME 8.9 fl (7.5-11.1); PLATELET COUNT 130 K/MM3 (134-434); RBC 3.31 M/mm3 (4.00-5.60); RDW 13.1 % (11.9-15.9)
[2020-11-26] MEDS: ATORVASTATIN CA 40 MG TABLET (FP) PO SCH (21:24)
[2020-11-26] MEDS: MELATONIN 5 MG TABLETS PO SCH (21:25)
[2020-11-26] MEDS: CEFUROXIME AXETIL 500 MG TABLET PO SCH (21:27)
[2020-11-26] MEDS: THIAMINE HCL 100 MG TABLET (FP) PO SCH (21:28)
[2020-11-26] MEDS: INSULIN (LEVEMIR) 100 UNITS/ML UNITS SQ SCH (21:31)
[2020-11-26] MEDS ORDERED: PT OWN MED DRAWER 7, Y5N ONE (22:18)
[2020-11-27] MEDS: guaiFENesin 200 MG/10 ML 10 ML UNIT-DOSE CUPS PO PRN (04:02)
[2020-11-27 06:46] VITALS: BP 142/72; PULSE 90; TEMP 97.7
[2020-11-27] MEDS: ACETAMINOPHEN 325 MG TABLET (FP) PO PRN (06:52)
[2020-11-27] MEDS ORDERED: INSULIN (NOVOLOG) ASPART 100 UNITS/ML 10ML VIAL ONE (07:05)
[2020-11-27] MEDS: INSULIN (NOVOLOG) ASPART 100 UNITS/ML 10ML VIAL SQ SCH (07:09)
[2020-11-27] MEDS: PIOGLITAZONE HCL 30 MG TABLET PO SCH (07:09)
[2020-11-27] MEDS: INSULIN SLIDING SCALE (NOVOLOG) 1 VIAL SQ SCH (07:10)
[2020-11-27] MEDS: CARVEDILOL 25 MG TABLET (FP) PO SCH (09:25)
[2020-11-27] MEDS: amLODIPine BESYLATE 5 MG TABLET (FP) PO SCH (09:25)
[2020-11-27] MEDS: GABAPENTIN 300 MG CAPSULE PO SCH (09:25)
[2020-11-27] MEDS: LORATADINE 10 MG TABLET PO SCH (09:25)
[2020-11-27] MEDS: CEFUROXIME AXETIL 500 MG TABLET PO SCH (09:26)
[2020-11-27] MEDS: PRENATAL VITAMINS W/ FOLIC ACID TABLET (FP) PO SCH (09:26)
[2020-11-27] MEDS: FUROSEMIDE 40 MG TABLET (FP) PO SCH (09:26)
[2020-11-27] MEDS: EZETIMIBE 10 MG TABLET (FP) PO SCH (09:27)
== END 2020-11-27 10:37 | disposition home or self-care (01) | DRG 895 ==
LOC: YASAS 08:14 → Y6N 09:54 → Y5N 11-13 14:22
PROVIDERS: ADMIT Allergy & Immunology; ATTEND Allergy & Immunology
PROC: HZ2ZZZZ Detoxification Services for Substance Abuse Treatment (ICD-10-PCS; 2020-11-09)
PROC: HZ42ZZZ Group Counseling for Substance Abuse Treatment, Cognitive-Behavioral (ICD-10-PCS; principal; 2020-11-13)
DX: F10.20 Alcohol dependence, uncomplicated (principal); L03.116 Cellulitis of left lower limb; F32.9 Major depressive disorder, single episode, unspecified; E78.00 Pure hypercholesterolemia, unspecified; E11.65 Type 2 diabetes mellitus with hyperglycemia; Z79.4 Long term (current) use of insulin; I12.9 Hypertensive chronic kidney disease with stage 1 through stage 4 chronic kidney disease, or unspecified chronic kidney disease; E11.22 Type 2 diabetes mellitus with diabetic chronic kidney disease; N18.30 Chronic kidney disease, stage 3 unspecified; G60.9 Hereditary and idiopathic neuropathy, unspecified; J45.909 Unspecified asthma, uncomplicated; R19.7 Diarrhea, unspecified; R60.0 Localized edema; Z91.81 History of falling; Z99.89 Dependence on other enabling machines and devices
CPT/HCPCS: 36415; 80053; 82962; 84132; 84520; 85027; 86780; 93005; 93010; C9803; U0003; U0005